=== PATIENT | male | born 1970 | race Caucasian/White ===

== ENCOUNTER 2017-09-11 08:27 | Emergency (ER) | payer OTHER ==
[~2017-09-11] VITALS: Ht 182.9 cm; Wt 117.9 kg
[2017-09-11 08:35] VITALS: Ht 182.9 cm; Wt 117.9 kg
[2017-09-11] MEDS ORDERED: V10 PO (08:53)
[2017-09-11] MEDS ORDERED: ZOCOR40 MG PO (08:53)
[2017-09-11] MEDS ORDERED: PAXIL40 M1 PO (08:54)
[2017-09-11 11:01] VITALS: BP 125/64
== END 2017-09-11 11:01 | disposition home or self-care (01) ==
LOC: ED 08:27
DX: M25.551 Pain in right hip (principal)
CPT/HCPCS: J1885

== ENCOUNTER 2018-06-25 16:26 | Emergency (ER) | payer OTHER ==
[~2018-06-25] VITALS: Ht 182.9 cm; Wt 116.1 kg
[~2018-06-25 16:26] MED LIST: PAXIL40 M1 PO; V10 PO; ZOCOR40 MG PO
[2018-06-25 16:36] VITALS: Ht 182.9 cm; Wt 116.1 kg
[2018-06-25 17:16] LABS: BASOPHIL % 0.3 % (0-2); PLATELET COUNT 215 x10^3mcL (130-400)
[2018-06-25 17:32] LABS: CALCIUM 9.3 mg/dL (8.5-10.1); CARBON DIOXIDE 25.6 mmol/L (21-32); CHLORIDE SERUM 102 mmol/L (98-107); CREATININE SERUM 1.1 mg/dL (0.7-1.3); GFR1 > 60 mL/min; GLUCOSE SERUM 113 mg/dL (74-106); POTASSIUM SERUM 4.2 mmol/L (3.5-5.1); SODIUM SERUM 138 mmol/L (136-145)
[2018-06-25 17:36] LABS: ALBUMIN 4.1 g/dL (3.4-5.0); ALKALINE PHOSPHATASE 93 U/L (46-116); ALT/SGPT 24 U/L (16-63); AST/SGOT 21 U/L (15-37); BILIRUBIN TOTAL 0.58 mg/dL (0.20-1.00); TOTAL PROTEIN, SERUM 7.9 g/dL (6.4-8.2)
[2018-06-25 18:16] LABS: UA SPECIFIC GRAVITY 1.025 (1.005-1.035); microscopic required? YES; urine erythrocyte 3+ (NEGATIVE)
[2018-06-25 20:01] VITALS: BP 152/94
== END 2018-06-25 20:01 | disposition home or self-care (01) ==
LOC: ED 16:26
PROVIDERS: Emergency Medicine
DX: R31.9 Hematuria, unspecified (principal)
CPT/HCPCS: J2270